=== PATIENT | female | born 1975 | race Caucasian/White ===

== ENCOUNTER 2017-03-11 16:18 | Emergency (ER) | payer BC ==
[2017-03-11 17:31] LABS: Basophils % (Auto) 0.3 % (0.0-1.8); Eosinophils % (Auto) 1.4 % (0.0-4.3); Hematocrit 37.9 % (30.3-42.9); Hemoglobin 12.8 gm/dl (10.1-14.3); Mean Corpuscular HGB Conc 34 % (30-34); Mean Corpuscular Hemoglobin 33 pg (28-32); Mean Corpuscular Volume 97 fl (79-97); Platelet Count 180 K/mm3 (140-440); Red Blood Count 3.92 M/mm3 (3.65-5.03); Red Cell Distribution Width 14.2 % (13.2-15.2); White Blood Count 6.5 K/mm3 (4.5-11.0)
[2017-03-11 17:35] LABS: Alanine Aminotransferase 16 units/L (7-56); Albumin 3.9 g/dL (3.9-5); Albumin/Globulin Ratio 1.3 %; Alkaline Phosphatase 71 units/L (35-129); Anion Gap 19 mmol/L; BUN/Creatinine Ratio 21.66; Blood Urea Nitrogen 13 mg/dL (7-17); Calcium 8.7 mg/dL (8.4-10.2); Carbon Dioxide 23 mmol/L (22-30); Chloride 99.9 mmol/L (98-107); Glucose 103 mg/dL (65-100); Lipase 17 units/L (13-60); Potassium 3.9 mmol/L (3.6-5.0); Sodium 138 mmol/L (137-145); Total Protein 6.8 g/dL (6.3-8.2)
[2017-03-11 17:37] LABS: Bilirubin,Urine NEG (Negative); Blood,Urine MOD (Negative); Ketones,Urine NEG (Negative); Leukocyte Esterase,Urine MOD (Negative); Mucus,Urine FEW /HPF; Nitrite,Urine NEG (Negative); Protein,Urine <15 mg/dL mg/dL (Negative); Urobilinogen,Urine < 2.0 mg/dL (<2.0)
[2017-03-11] MEDS ORDERED: MORPHINE IV ONE (20:16)
[2017-03-11] MEDS ORDERED: NACL 0.9% 1000 ML 1,000 ML IV ONE (20:16)
--- NOTE | 2017-03-11 20:19 | Emergency Department Report ---
HPI <SHAWN HERRERA - Last Filed: 03/12/17 03:48> - HPI HPI: This is a 42-year-old female presents to the emergency department, driving herself in to be seen, with complaint of mid upper abdominal pain. This may going on intermittently since last month and seemed to mostly occur when the patient has her menstrual cycle. However her menstrual cycle ended 2 days ago and that is when this pain worsened in intensity and became more constant. She denies any nausea, vomiting, diarrhea, dysuria, vaginal bleeding or discharge or fever. She tried some chamomile tea last night with some transient relief. She denies any significant past medical history. She does not have a primary care doctor. No recent travel or sick contacts at home. The pain is spasmodic and is still intermittent but now is occurring about every 2 minutes. <ALEXUS MARIE Maddy - Last Filed: 03/13/17 06:58> - General Chief Complaint: Abdominal Pain Time Seen by Provider: 03/11/17 19:52 ED Past Medical Hx <SHAWN HERRERA - Last Filed: 03/12/17 03:48> - Past Medical History Additional medical history: "LOW VITAMIN D". "ENLARGED RIGHT HEART" - Surgical History Past Surgical History?: No - Social History Smoking Status: Never Smoker Substance Use Type: None <FRANKALEXUS Castañeda - Last Filed: 03/13/17 06:58> - Medications Home Medications: Home Medications Medication Instructions Recorded Confirmed Last Taken Type HYDROcodone/APAP 5-325 [[place] 1 each PO Q6HR PRN #10 tablet 03/12/17 Unknown Rx 5/325] Ondansetron [Zofran Odt] 4 mg PO QID PRN #20 tab.rapdis 03/12/17 Unknown Rx ED Review of Systems ROS: Stated complaint: PAIN IN ABD X 8 DAYS Other details as noted in HPI <SHAWN HERRERA - Last Filed: 03/12/17 03:48> ROS: Stated complaint: PAIN IN ABD X 8 DAYS Other details as noted in HPI Comment: All other systems reviewed and negative Constitutional: denies: chills, fever Eyes: denies: eye pain, eye discharge, vision change ENT: denies: ear pain, throat pain Respiratory: denies: cough, shortness of breath, wheezing Cardiovascular: denies: chest pain, palpitations Gastrointestinal: abdominal pain. denies: nausea, vomiting Genitourinary: denies: urgency, dysuria, discharge Musculoskeletal: denies: back pain, joint swelling, arthralgia Skin: denies: rash, lesions Neurological: denies: headache, weakness, paresthesias <ALEXUS MARIE - Last Filed: 03/13/17 06:58> Physical Exam - Physical Exam Vital Signs: Vital Signs 03/11/17 03/11/17 03/11/17 16:33 20:48 20:50 Temperature 98.7 F 98 F Pulse Rate 78 88 Respiratory 17 20 18 Rate Blood Pressure 132/76 Blood Pressure 132/77 [Left] O2 Sat by Pulse 100 98 Oximetry 03/12/17 00:52 Temperature 98 F Pulse Rate 88 Respiratory 18 Rate Blood Pressure Blood Pressure 122/75 [Left] O2 Sat by Pulse 98 Oximetry <SHAWN HERRERA - Last Filed: 03/12/17 03:48> - Physical Exam Vital Signs: Vital Signs 03/11/17 16:33 Temperature 98.7 F Pulse Rate 78 Respiratory 17 Rate Blood Pressure 132/76 O2 Sat by Pulse 100 Oximetry Physical Exam: GENERAL: The patient is well-developed well-nourished. HEENT: Normocephalic. Atraumatic. Extraocular motions are intact. Patient has moist mucous membranes. Pupils equal reactive to light bilaterally. NECK: Supple. Trachea is midline. CHEST/LUNGS: Clear to auscultation. There is no respiratory distress noted. HEART/CARDIOVASCULAR: Regular. There is no tachycardia. There is no gallop rub or murmur. ABDOMEN: Abdomen is soft. Unable to reproduce patient's abdominal pain to palpation but she appears to be having some spasmodic upper abdominal discomfort. No guarding or rebound and tenderness. Patient has normal bowel sounds. There is no abdominal distention. SKIN: Skin is warm and dry. NEURO: The patient is awake, alert, and oriented. The patient is cooperative. The patient has no focal neurologic deficits. The patient has normal speech and gait. MUSCULOSKELETAL: There is no tenderness or deformity. There is no limitation range of motion. There is no evidence of acute injury. <ALEXUS MARIE S - Last Filed: 03/13/17 06:58> ED Course Vital Signs 03/11/17 03/11/17 03/11/17 16:33 20:48 20:50 Temperature 98.7 F 98 F Pulse Rate 78 88 Respiratory 17 20 18 Rate Blood Pressure 132/76 Blood Pressure 132/77 [Left] O2 Sat by Pulse 100 98 Oximetry 03/12/17 00:52 Temperature 98 F Pulse Rate 88 Respiratory 18 Rate Blood Pressure Blood Pressure 122/75 [Left] O2 Sat by Pulse 98 Oximetry - Reevaluation(s) Reevaluation #1: 03/12/17 03:48 CT scan suggests enteritis. No active nausea or vomiting at this time. patient clinically appearing well. Tolerating liquid feeds. EKG unremarkable. Patient to be discharged as per Dr. Pineda plan <SHAWN HERRERA - Last Filed: 03/12/17 03:48> Vital Signs 03/11/17 16:33 Temperature 98.7 F Pulse Rate 78 Respiratory 17 Rate Blood Pressure 132/76 O2 Sat by Pulse 100 Oximetry <ALEXUS MARIE - Last Filed: 03/13/17 06:58> ED Medical Decision Making - Lab Data Result diagrams: 03/11/17 17:00 03/11/17 17:00 Vital Signs 03/11/17 03/11/17 03/11/17 16:33 20:48 20:50 Temperature 98.7 F 98 F Pulse Rate 78 88 Respiratory 17 20 18 Rate Blood Pressure 132/76 Blood Pressure 132/77 [Left] O2 Sat by Pulse 100 98 Oximetry 03/12/17 00:52 Temperature 98 F Pulse Rate 88 Respiratory 18 Rate Blood Pressure Blood Pressure 122/75 [Left] O2 Sat by Pulse 98 Oximetry Lab Results 03/11/17 03/11/17 03/11/17 Range/Units 17:00 17:00 17:00 WBC 6.5 (4.5-11.0) K/mm3 RBC 3.92 (3.65-5.03) M/mm3 Hgb 12.8 (10.1-14.3) gm/dl Hct 37.9 (30.3-42.9) % MCV 97 (79-97) fl MCH 33 H (28-32) pg MCHC 34 (30-34) % RDW 14.2 (13.2-15.2) % Plt Count 180 (140-440) K/mm3 Lymph % (Auto) 24.1 (13.4-35.0) % [place] % (Auto) 10.0 H (0.0-7.3) % Eos % (Auto) 1.4 (0.0-4.3) % Baso % (Auto) 0.3 (0.0-1.8) % Lymph # 1.6 (1.2-5.4) K/mm3 [place] # 0.6 (0.0-0.8) K/mm3 Eos # 0.1 (0.0-0.4) K/mm3 Baso # 0.0 (0.0-0.1) K/mm3 Seg Neutrophils % 64.2 (40.0-70.0) % Seg Neutrophils # 4.2 (1.8-7.7) K/mm3 Sodium 138 (137-145) mmol/L Potassium 3.9 (3.6-5.0) mmol/L Chloride 99.9 (98-107) mmol/L Carbon Dioxide 23 (22-30) mmol/L Anion Gap 19 mmol/L BUN 13 (7-17) mg/dL Creatinine 0.6 L (0.7-1.2) mg/dL Estimated GFR > 60 ml/min BUN/Creatinine Ratio 21.66 % Glucose 103 H (65-100) mg/dL Calcium 8.7 (8.4-10.2) mg/dL Total Bilirubin 0.20 (0.1-1.2) mg/dL AST 18 (5-40) units/L ALT 16 (7-56) units/L Alkaline Phosphatase 71 (35-129) units/L Troponin T (0.00-0.029) ng/mL Total Protein 6.8 (6.3-8.2) g/dL Albumin 3.9 (3.9-5) g/dL Albumin/Globulin Ratio 1.3 % Lipase 17 (13-60) units/L HCG, Qual Negative (Negative) Urine Color (Yellow) Urine Turbidity (Clear) Urine pH (5.0-7.0) Ur Specific [place] (1.003-1.030) Urine Protein (Negative) mg/dL Urine Glucose (UA) (Negative) mg/dL Urine Ketones (Negative) mg/dL Urine Blood (Negative) Urine Nitrite (Negative) Urine Bilirubin (Negative) Urine Urobilinogen (<2.0) mg/dL Ur Leukocyte Esterase (Negative) Urine WBC (Auto) (0.0-6.0) /HPF Urine RBC (Auto) (0.0-6.0) /HPF U Epithel Cells (Auto) (0-13.0) /HPF Urine Mucus /HPF 03/11/17 03/12/17 Range/Units Unknown 02:09 WBC (4.5-11.0) K/mm3 RBC (3.65-5.03) M/mm3 Hgb (10.1-14.3) gm/dl Hct (30.3-42.9) % MCV (79-97) fl MCH (28-32) pg MCHC (30-34) % RDW (13.2-15.2) % Plt Count (140-440) K/mm3 Lymph % (Auto) (13.4-35.0) % [place] % (Auto) (0.0-7.3) % Eos % (Auto) (0.0-4.3) % Baso % (Auto) (0.0-1.8) % Lymph # (1.2-5.4) K/mm3 [place] # (0.0-0.8) K/mm3 Eos # (0.0-0.4) K/mm3 Baso # (0.0-0.1) K/mm3 Seg Neutrophils % (40.0-70.0) % Seg Neutrophils # (1.8-7.7) K/mm3 Sodium (137-145) mmol/L Potassium (3.6-5.0) mmol/L Chloride (98-107) mmol/L Carbon Dioxide (22-30) mmol/L Anion Gap mmol/L BUN (7-17) mg/dL Creatinine (0.7-1.2) mg/dL Estimated GFR ml/min BUN/Creatinine Ratio % Glucose (65-100) mg/dL Calcium (8.4-10.2) mg/dL Total Bilirubin (0.1-1.2) mg/dL AST (5-40) units/L ALT (7-56) units/L Alkaline Phosphatase (35-129) units/L Troponin T < 0.010 (0.00-0.029) ng/mL Total Protein (6.3-8.2) g/dL Albumin (3.9-5) g/dL Albumin/Globulin Ratio % Lipase (13-60) units/L HCG, Qual (Negative) Urine Color Yellow (Yellow) Urine Turbidity Clear (Clear) Urine pH 5.0 (5.0-7.0) Ur Specific [place] 1.017 (1.003-1.030) Urine Protein <15 mg/dl (Negative) mg/dL Urine Glucose (UA) Neg (Negative) mg/dL Urine Ketones Neg (Negative) mg/dL Urine Blood Mod (Negative) Urine Nitrite Neg (Negative) Urine Bilirubin Neg (Negative) Urine Urobilinogen < 2.0 (<2.0) mg/dL Ur Leukocyte Esterase Mod (Negative) Urine WBC (Auto) 10.0 H (0.0-6.0) /HPF Urine RBC (Auto) 1.0 (0.0-6.0) /HPF U Epithel Cells (Auto) 4.0 (0-13.0) /HPF Urine Mucus Few /HPF - EKG Data -: EKG Interpreted by [facility] EKG shows normal: sinus rhythm, axis, intervals, QRS complexes, ST-T waves - Radiology Data Radiology results: report reviewed <SHAWN HERRERA - Last Filed: 03/12/17 03:48> - Lab Data Result diagrams: 03/11/17 17:00 03/11/17 17:00 - EKG Data -: EKG Interpreted by [place] EKG shows normal: sinus rhythm, axis, intervals, QRS complexes, ST-T waves Rate: normal - EKG Data When compared to previous EKG there are: previous EKG unavailable Interpretation: normal EKG - Radiology Data Radiology results: report reviewed EXAM: CT ABDOMEN PELVIS W CON HISTORY: Abd pain COMPARISON: None available. TECHNIQUE: Contiguous axial images were obtained. Additional sagittal and coronal reformatted images were obtained. Administration of IV contrast given per institution protocol. Images submitted for interpretation. 100 cc Omnipaque [id number]. FINDINGS: Mild linear atelectasis at the lung bases. No calcified gallstones or biliary dilatation. Mild fatty infiltration of the liver. Spleen and pancreas are grossly unremarkable. Mild nodular thickening of adrenal glands. No solid renal lesion. No hydronephrosis. Aorta and IVC are normal in caliber. Urinary bladder, uterus, ovaries are grossly unremarkable. No free fluid or lymphadenopathy in the pelvic cavity. Mild wall thickening hyperemia small bowel loops right lower abdomen. There borderline enlarged mesenteric lymph nodes in the right mid abdomen which may be reactive. For example in the right mesentery there is a lymph node measuring 11 x 8 millimeters in axial dimension. No bowel obstruction. No free air pneumatosis. The appendix is normal in caliber measuring 5-6 millimeters in diameter. No adjacent fat stranding or fluid to suggest acute inflammation of the appendix. Small umbilical hernia containing fat only. Mild to moderate degenerative changes of the lumbar spine. Bony pelvis is grossly intact. IMPRESSION: Findings compatible with enteritis involving small bowel loops in the right lower abdomen. This is likely inflammatory or infectious in etiology. There few reactive lymph nodes in the right mesentery. No bowel obstruction, free air, or pneumatosis. The appendix is normal in caliber. No other gross acute findings. - Medical Decision Making Is a 42-year-old female presents to the emergency department with some intermittent abdominal pains that has been going on for about the past month but worsened over the past few days. Usually it only happened with her menstrual cycle but that ended and the pain continued. Labs were mostly unremarkable and did not show any etiology of the patient's symptoms. An EKG was obtained because the patient says that at one point it went towards the left lateral chest wall but the EKG was normal without ST elevation CA, ischemia or dysrhythmia. She also had a negative troponin. No signs of infection in the blood, no joint abnormalities, renal insufficiency or glucose abnormalities. Normal belly labs including bilirubin, lipase and LFTs. The urinalysis did have 10 white blood cells in the urine but it was a small amount and she does not have any dysuria, increased frequency or urgency or signs of any urinary tract infection so we will not treat that at this time. CT of the abdomen and pelvis with IV contrast showed some signs of enteritis but otherwise no acute process. She was discharged home with a medication and Zofran for nausea and referrals for primary care. She will return to the ER with any worsening of her symptoms or any acute distress. - Differential Diagnosis GERD, colitis, gastroenteritis, diverticulitis, colitis <ALEXUS MARIE - Last Filed: 03/13/17 06:58> Critical care attestation.: If time is entered above; I have spent that time in minutes in the direct care of this critically ill patient, excluding procedure time. <SHAWN HERRERA - Last Filed: 03/12/17 03:48> Critical Care Time: No Critical care attestation.: If time is entered above; I have spent that time in minutes in the direct care of this critically ill patient, excluding procedure time. <ALEXUS MARIE - Last Filed: 03/13/17 06:58> ED Disposition Is pt being admited?: No Does the pt Need Aspirin: No <SHAWN HERRERA - Last Filed: 03/12/17 03:48> Is pt being admited?: No Does the pt Need Aspirin: No Time of Disposition: 01:51 <ALEXUS MARIE - Last Filed: 03/13/17 06:58> Clinical Impression: Abdominal pain Qualifiers: Abdominal location: upper abdomen, unspecified Qualified Code(s): R10.10 - Upper abdominal pain, unspecified Disposition: DISCHARGED TO HOME OR SELFCARE Condition: Good Instructions: Abdominal Pain (ED) Additional Instructions: Please follow-up with a primary care doctor the next few days. Return to the emergency department with any worsening of her symptoms, intractable vomiting, intractable fever, or any acute distress. You've been prescribed a medication that is sedating. Therefore this medication cannot be mixed with alcohol, or taken prior to driving, working, or being responsible for children. Prescriptions: HYDROcodone/APAP 5-325 [[place] 5/325] 1 each PO Q6HR PRN #10 tablet PRN Reason: Pain Ondansetron [Zofran Odt] 4 mg PO QID PRN #20 tab.rapdis PRN Reason: Nausea Referrals: PRIMARY CARE, [Primary Care Provider] - 3-5 Days SIVAN ANDREWS MD [Staff Physician] - 3-5 Days [facility] [Outside] - 3-5 Days
[2017-03-11] MEDS ORDERED: NACL ONE (20:54)
[2017-03-12 00:53] VITALS: BP 122/75
[2017-03-12] MEDS ORDERED: NACL 0.9% 1000 ML 1,000 ML IV ONE (02:05)
--- NOTE | 2017-03-12 02:15 | Cat Scan Report ---
FINAL REPORT EXAM: CT ABDOMEN PELVIS W CON HISTORY: Abd pain COMPARISON: None available. TECHNIQUE: Contiguous axial images were obtained. Additional sagittal and coronal reformatted images were obtained. Administration of IV contrast given per institution protocol. Images submitted for interpretation. 100 cc Omnipaque [id number]. FINDINGS: Mild linear atelectasis at the lung bases. No calcified gallstones or biliary dilatation. Mild fatty infiltration of the liver. Spleen and pancreas are grossly unremarkable. Mild nodular thickening of adrenal glands. No solid renal lesion. No hydronephrosis. Aorta and IVC are normal in caliber. Urinary bladder, uterus, ovaries are grossly unremarkable. No free fluid or lymphadenopathy in the pelvic cavity. Mild wall thickening hyperemia small bowel loops right lower abdomen. There borderline enlarged mesenteric lymph nodes in the right mid abdomen which may be reactive. For example in the right mesentery there is a lymph node measuring 11 x 8 millimeters in axial dimension. No bowel obstruction. No free air pneumatosis. The appendix is normal in caliber measuring 5-6 millimeters in diameter. No adjacent fat stranding or fluid to suggest acute inflammation of the appendix. Small umbilical hernia containing fat only. Mild to moderate degenerative changes of the lumbar spine. Bony pelvis is grossly intact. IMPRESSION: Findings compatible with enteritis involving small bowel loops in the right lower abdomen. This is likely inflammatory or infectious in etiology. There few reactive lymph nodes in the right mesentery. No bowel obstruction, free air, or pneumatosis. The appendix is normal in caliber. No other gross acute findings.
== END 2017-03-12 02:00 | disposition home or self-care (01) ==
LOC: ED 16:18
DX: R10.10 Upper abdominal pain, unspecified (principal)
CPT/HCPCS: 36415; 74177; 80053; 81001; 83690; 84484; 84703; 85025; 93005; 93010; 96361; 96374; 99284; J2270; J7030; Q9967